=== PATIENT | female | born 1945 | race Caucasian/White ===

== ENCOUNTER 2022-01-14 23:44 | Inpatient (IN) ==
[2022-01-14] MEDS ORDERED: NS 0.9% 1000 ml BAG 1,000 ML IV ONE (23:58)
[2022-01-14] MEDS ORDERED: Diltiazem IV push/loading dose 5 MG/ML 5 ML vial (25 mg) IV PUSH ONE (23:58)
[2022-01-15 00:37] LABS: ABS Basophils 0.1 10^3/ul (0-0.2); ABS Eosinophils 0.7 10^3/ul (0-0.6); ABS Lymphocytes 1.5 10^3/ul (1.0-4.8); ABS Neutrophils 7.1 10^3/ul (1.5-7.7); Eosinophil % 6.8 %; Hematocrit 35 % (35-47); Hemoglobin 11.7 g/dL (12.0-16.0); Lymphocyte % 14.8 %; Mean Corpuscular HGB Conc 33 g/dL (31-36); Mean Corpuscular Hemoglobin 31 pg (27-31); Mean Corpuscular Volume 94 fL (80-97); Mean Platelet Volume 7.5 fL (7.4-10.4); Platelet Count 178 10^3/uL (150-450); Red Blood Count 3.76 10^6 /uL (3.70-4.87); Red Cell Distribution Width 19 % (10-15); White Blood Count 10.3 10^3/uL (3.5-10.8)
[2022-01-15 01:09] LABS: Activated Partial Thrombo Time 34.8 seconds (26.0-38.0); INR 1.04 (0.86-1.15)
[2022-01-15 01:16] LABS: Albumin 3.7 g/dL (3.2-5.2); Albumin/Globulin Ratio 1.4 (1-3); Calcium 8.3 mg/dL (8.6-10.3); Globulin 2.6 g/dL (2-4); Magnesium 1.8 mg/dL (1.9-2.7); Potassium 3.6 mmol/L (3.5-5.0); Total Bilirubin 0.2 mg/dL (0.2-1.0); Total Protein 6.3 g/dL (6.4-8.9); eGFR CKD-EPI 50.5 (>60)
[2022-01-15 01:21] LABS: CKMB ng/mL 1.4 ng/mL (0.6-6.3)
[2022-01-15 01:31] LABS: TSH Ultra Thyroid Stim Horm 5.59 mcIU/mL (0.34-5.60)
[2022-01-15 02:09] LABS: High Sensitivity Troponin 1 Hr 46 pg/mL (<15)
[2022-01-15] MEDS ORDERED: Ondansetron 4 mg VIAL 2 MG/ML 2 ml VIAL IV PRN (04:51)
[2022-01-15] MEDS ORDERED: Magnesium Sulfate 2 gm BAG 2 GM/50 ML BAG IVPB ONE (07:17)
[2022-01-15] MEDS ORDERED: Nitroglycerin 0.3 mg TAB SL PRN (07:27)
[2022-01-15] MEDS ORDERED: Regadenoson 0.4 MG/5 ML SYRINGE ONE (07:32)
[2022-01-15] MEDS ORDERED: Aminophylline 25 MG/ML VIAL ONE (07:32)
[2022-01-15] MEDS ORDERED: Ondansetron 4 mg VIAL 2 MG/ML 2 ml VIAL ONE (07:54)
[2022-01-15] MEDS: CMC:Simvastatin 20 mg TAB (NF) PO SCH (10:15)
[2022-01-15 11:50] LABS: High Sensitivity Troponin 1 Hr 51 pg/mL (<15)
[2022-01-16 06:52] LABS: ABS Eosinophils 0.7 10^3/ul (0-0.6); ABS Lymphocytes 1.6 10^3/ul (1.0-4.8); ABS Monocytes 0.8 10^3/ul (0-0.8); ABS Neutrophils 5.2 10^3/ul (1.5-7.7); Eosinophil % 8.1 %; Hematocrit 34 % (35-47); Hemoglobin 11.5 g/dL (12.0-16.0); Lymphocyte % 19.2 %; Mean Corpuscular HGB Conc 33 g/dL (31-36); Mean Corpuscular Hemoglobin 31 pg (27-31); Mean Corpuscular Volume 94 fL (80-97); Mean Platelet Volume 7.9 fL (7.4-10.4); Platelet Count 165 10^3/uL (150-450); Red Blood Count 3.65 10^6 /uL (3.70-4.87); Red Cell Distribution Width 19 % (10-15); White Blood Count 8.4 10^3/uL (3.5-10.8)
[2022-01-16 06:53] LABS: Calcium 8.1 mg/dL (8.6-10.3); Potassium 4.1 mmol/L (3.5-5.0)
[2022-01-16] MEDS: CMC:Simvastatin 20 mg TAB (NF) PO SCH (07:56)
[2022-01-16] MEDS ORDERED: Metoprolol Tartrate 5 mg VIAL 5 ml VIAL (1 mg/ml) IV ONE ×2 (08:48→09:14)
[2022-01-16] MEDS ORDERED: Metoprolol Tartrate 5 mg VIAL 5 ml VIAL (1 mg/ml) ONE ×2 (08:52→09:22)
[2022-01-16] MEDS ORDERED: Diltiazem IV push/loading dose 5 MG/ML 5 ML vial (25 mg) IV SLOW PU ONE ×2 (09:43)
[2022-01-16 09:55] LABS: Magnesium 2.2 mg/dL (1.9-2.7)
[2022-01-16 10:42] LABS: High Sensitivity Troponin 1 Hr 46 pg/mL (<15)
[2022-01-17 07:05] LABS: Hematocrit 35 % (35-47); Hemoglobin 11.6 g/dL (12.0-16.0); Mean Corpuscular HGB Conc 34 g/dL (31-36); Mean Corpuscular Hemoglobin 32 pg (27-31); Mean Corpuscular Volume 95 fL (80-97); Mean Platelet Volume 7.9 fL (7.4-10.4); Platelet Count 181 10^3/uL (150-450); Red Blood Count 3.64 10^6 /uL (3.70-4.87); Red Cell Distribution Width 18 % (10-15); White Blood Count 8.8 10^3/uL (3.5-10.8)
[2022-01-17] MEDS: Cholecalciferol (VIT D3) 1,000 unit TAB PO SCH (07:18)
[2022-01-17 07:19] LABS: Calcium 8.5 mg/dL (8.6-10.3); Potassium 4.2 mmol/L (3.5-5.0)
[2022-01-17] MEDS: CMC:Simvastatin 20 mg TAB (NF) PO SCH (07:19)
[2022-01-17] MEDS: Calcium/Vitamin D TAB 250/125 TAB PO SCH (07:20)
[2022-01-17] MEDS ORDERED: NS 0.9% 500 ml BAG 500 ML IV ONE (09:40)
[2022-01-17 12:18] LABS: Urine Appearance Clear; Urine Bilirubin Negative (Negative); Urine Blood Negative (Negative); Urine Color Straw; Urine Glucose Negative (Negative); Urine Ketones Negative (Negative); Urine Nitrite Negative (Negative); Urine Protein Negative (Negative); Urine Specific Gravity 1.006 (1.002-1.030); Urine Urobilinogen Negative (Negative)
[2022-01-18 06:54] LABS: Calcium 8.8 mg/dL (8.6-10.3); Potassium 4.4 mmol/L (3.5-5.0)
[2022-01-18] MEDS: Cholecalciferol (VIT D3) 1,000 unit TAB PO SCH (10:43)
[2022-01-18] MEDS: Calcium/Vitamin D TAB 250/125 TAB PO SCH (10:46)
[2022-01-18] MEDS: CMC:Simvastatin 20 mg TAB (NF) PO SCH (10:46)
[2022-01-18] MEDS ORDERED: Al Hydrox/Mg Hydrox/Simet LIQ 30 ML UDC PO ONE (12:27)
[2022-01-18] MEDS ORDERED: Al Hydrox/Mg Hydrox/Simet LIQ 30 ML UDC PO PRN (14:01)
[2022-01-19 06:26] LABS: Calcium 9.1 mg/dL (8.6-10.3); Magnesium 1.8 mg/dL (1.9-2.7); Potassium 4.3 mmol/L (3.5-5.0); eGFR CKD-EPI 42.8 (>60)
[2022-01-19] MEDS: Calcium/Vitamin D TAB 250/125 TAB PO SCH (07:33)
[2022-01-19] MEDS: Cholecalciferol (VIT D3) 1,000 unit TAB PO SCH (07:33)
[2022-01-19] MEDS: CMC:Simvastatin 20 mg TAB (NF) PO SCH (07:34)
[2022-01-19 12:13] VITALS: BP 142/61
== END 2022-01-19 13:56 | disposition home or self-care (01) | DRG 309 ==
LOC: ED 23:44 → SUATTDRO 01-15 04:45 → EDHOLD 01-15 04:45 → MEDTELE 01-15 15:30
PROVIDERS: ADMIT Internal Medicine; ATTEND Internal Medicine

== ENCOUNTER 2024-06-07 16:58 | Inpatient (IN) ==
[2024-06-07 17:48] LABS: ABS Basophils 0.1 10^3/uL (0.0-0.1); ABS Eosinophils 0.3 10^3/uL (0.0-0.5); ABS Lymphocytes 0.6 10^3/uL (1.0-4.8); ABS Monocytes 0.6 10^3/uL (0.0-0.9); ABS Neutrophils 6.2 10^3/uL (1.5-7.6); ABS Nucleated RBC 0.01 10^3/ul; Eosinophil % 3.7 %; Hematocrit 32.1 % (35-45); Hemoglobin 10.4 g/dL (11.5-14.3); Lymphocyte % 7.3 %; Mean Corpuscular Hemoglobin 30.5 pg (27-33); Mean Corpuscular Hgb Conc 32.5 g/dL (31-36); Mean Corpuscular Volume 93.9 fL (80-97); Mean Platelet Volume 7.6 fL (7.5-11.2); Nucleated Red Blood Cells % 0.1 %/100WBC (0.0-0.8); Platelet Count 179 10^3/uL (150-450); Red Blood Count 3.42 10^6/uL (3.63-4.92); Red Cell Distribution Width 19.2 % (12-17); White Blood Count 7.7 10^3/uL (3.8-11.8)
[2024-06-07 17:59] LABS: INR 1.13 (0.85-1.14)
[2024-06-07] MEDS: Ondansetron 4 mg VIAL 2 MG/ML 2 ml VIAL IV ONE (18:21)
[2024-06-07 18:26] LABS: Albumin 4.1 g/dL (3.2-5.2); Albumin/Globulin Ratio 1.5 (1-3); Calcium 9.5 mg/dL (8.6-10.3); Creatinine, Serum 1.48 mg/dL (0.51-0.95); Globulin 2.8 g/dL (2-4); Potassium 4.4 mmol/L (3.5-5.0); Total Bilirubin 0.4 mg/dL (0.2-1.0); Total Protein 6.9 g/dL (6.4-8.9); eGFR CKD-EPI 36.5 (>60)
[2024-06-07] MEDS: Lactated Ringers 1000 ml BAG IV.FLUID IV ONE (18:30)
[2024-06-07] MEDS: Iodixanol 320 (CONTRAST) 100 ML SDV IV ONE (19:03)
[2024-06-07 19:20] LABS: High Sensitivity Troponin 1 Hr 145 pg/mL (<15)
[2024-06-07 22:27] LABS: High Sensitivity Troponin 3 Hr 158 pg/mL (<15)
[2024-06-08] MEDS: Morphine 2 MG/ML SYRINGE IV PRN (00:04)
[2024-06-08] MEDS: Enoxaparin 30 MG/0.3 ML SYR SUBCUT SCH (00:07)
[2024-06-08] MEDS ORDERED: Sulfur Hexaflouride MICROSPHR 25 MG VIAL IV PRN ×2 (03:19→11:34)
[2024-06-08 05:10] LABS: ABS Basophils 0.1 10^3/uL (0.0-0.1); ABS Eosinophils 0.4 10^3/uL (0.0-0.5); ABS Lymphocytes 1.2 10^3/uL (1.0-4.8); ABS Monocytes 0.6 10^3/uL (0.0-0.9); ABS Neutrophils 5.1 10^3/uL (1.5-7.6); ABS Nucleated RBC 0.01 10^3/ul; Eosinophil % 5.4 %; Hematocrit 29.3 % (35-45); Hemoglobin 9.3 g/dL (11.5-14.3); Lymphocyte % 16.5 %; Mean Corpuscular Hemoglobin 30.1 pg (27-33); Mean Corpuscular Hgb Conc 31.7 g/dL (31-36); Mean Corpuscular Volume 94.9 fL (80-97); Mean Platelet Volume 7.7 fL (7.5-11.2); Nucleated Red Blood Cells % 0.2 %/100WBC (0.0-0.8); Platelet Count 153 10^3/uL (150-450); Red Blood Count 3.09 10^6/uL (3.63-4.92); Red Cell Distribution Width 19.1 % (12-17); White Blood Count 7.4 10^3/uL (3.8-11.8)
[2024-06-08 05:26] LABS: Albumin 3.8 g/dL (3.2-5.2); Albumin/Globulin Ratio 1.4 (1-3); Creatinine, Serum 1.4 mg/dL (0.51-0.95); Globulin 2.7 g/dL (2-4); HDL Cholesterol 34.3 mg/dL; Magnesium 1.7 mg/dL (1.9-2.7); Potassium 4.4 mmol/L (3.5-5.0); Total Bilirubin 0.3 mg/dL (0.2-1.0); Total Protein 6.5 g/dL (6.4-8.9)
[2024-06-08] MEDS ORDERED: Midazolam 5 mg/5 ml VIAL 1 mg/ml 5 ml VIAL (5 mg) ONE ×3 (09:33→13:16)
[2024-06-08] MEDS ORDERED: fentaNYL 250 mcg/5 ml 50 MCG/ML 5 ml VIAL (250 MCG) ONE ×2 (09:33→13:07)
[2024-06-08] MEDS: Cholecalciferol (VIT D3) 1,000 unit TAB PO SCH (10:06)
[2024-06-08] MEDS: Nitro 2% OINT (Nitroglycerin) 1 INCH/PAK TOPICAL ONE (11:10)
[2024-06-08] MEDS: Heparin DRIP 25,000 UNITS BAG 25,000 UNITS/250 ML BAG IV SCH (11:29)
[2024-06-08] MEDS: Heparin 5000 UNITS/ML 1 mL VIAL IV SCH (11:32)
[2024-06-08] MEDS: Ondansetron 4 mg VIAL 2 MG/ML 2 ml VIAL IV PRN (12:39)
[2024-06-08] MEDS: Magnesium Sulfate 2 gm BAG 2 GM/50 ML BAG IVPB ONE (12:41)
[2024-06-08] MEDS: NS 0.9% 1000 ml BAG 1,000 ML IV SCH (12:43)
[2024-06-08] MEDS ORDERED: VERAPAMIL 2.5 MG/ML 2 ML VIAL ** 5 mg/2 ml ONE (13:16)
[2024-06-08] MEDS ORDERED: fentaNYL 100 mcg/2 ml 50 MCG/ML VIAL ONE (13:16)
[2024-06-08] MEDS ORDERED: Iohexol 350 (CONTRAST) 100 ML PAK IV ONE (13:17)
[2024-06-08] MEDS ORDERED: nitroGLYCERIN DRIP 25,000 MCG/250 ML BTL ONE (13:17)
[2024-06-08] MEDS ORDERED: Heparin 2 UNITS/ML 1000 mls 2,000 ML IV ONE (13:17)
[2024-06-08] MEDS ORDERED: Lidocaine 1% MPF 5 ML VIAL ONE (13:17)
[2024-06-08] MEDS ORDERED: Heparin 1,000 UNIT/ML 10 ml (10,000 UNITS) CATHLAB/DIALYSIS ONE (13:17)
[2024-06-08] MEDS ORDERED: Iohexol 350 (CONTRAST) 200 ML MDV IV ONE (13:18)
[2024-06-08 13:28] LABS: High Sensitivity Troponin 1 Hr 146 pg/mL (<15)
[2024-06-08] MEDS ORDERED: Prochlorperazine 5 mg/ml 2 ml VIAL (10 mg) ONE (13:28)
[2024-06-08] MEDS ORDERED: Atropine 0.1 MG/ML 10 ml SYR (1 mg) ONE (14:02)
[2024-06-08] MEDS: fentaNYL 100 mcg/2 ml 50 MCG/ML VIAL IV SLOW PU ONE (14:38)
[2024-06-08] MEDS: Midazolam 10 mg/10 ml VIAL 1 mg/ml 10 ml VIAL (10 mg) IV SLOW PU ONE (14:40)
[2024-06-08] MEDS: Magnesium Sulfate IV 1GM/100ML 1 GM/100 ML BAG IV ONE (14:58)
[2024-06-08] MEDS: Furosemide 20 mg/2 ml IV VIAL IV SLOW PU ONE (18:10)
[2024-06-08] MEDS: CMCS: Simvastatin 20 mg TAB (NF) PO SCH (20:54)
[2024-06-09 06:56] LABS: Hematocrit 33.6 % (35-45); Hemoglobin 10.5 g/dL (11.5-14.3); Mean Corpuscular Hemoglobin 30.2 pg (27-33); Mean Corpuscular Hgb Conc 31.3 g/dL (31-36); Mean Corpuscular Volume 96.5 fL (80-97); Mean Platelet Volume 8.1 fL (7.5-11.2); Platelet Count 125 10^3/uL (150-450); Red Blood Count 3.48 10^6/uL (3.63-4.92); Red Cell Distribution Width 19.5 % (12-17); White Blood Count 7.3 10^3/uL (3.8-11.8)
[2024-06-09 07:28] LABS: ABS Eosinophils 0.3 10^3/uL (0.0-0.5); ABS Lymphocytes 1.2 10^3/uL (1.0-4.8); ABS Monocytes 0.9 10^3/uL (0.0-0.9); ABS Neutrophils 4.8 10^3/uL (1.5-7.6); ABS Nucleated RBC 0.02 10^3/ul; Anisocytosis 1+; Eosinophil % 4.8 %; Nucleated Red Blood Cells % 0.2 %/100WBC (0.0-0.8)
[2024-06-09 07:32] LABS: Albumin 3.9 g/dL (3.2-5.2); Albumin/Globulin Ratio 1.5 (1-3); Calcium 8.6 mg/dL (8.6-10.3); Creatinine, Serum 1.58 mg/dL (0.51-0.95); Globulin 2.6 g/dL (2-4); Magnesium 2.8 mg/dL (1.9-2.7); Potassium 5.1 mmol/L (3.5-5.0); Total Bilirubin 0.3 mg/dL (0.2-1.0); Total Protein 6.5 g/dL (6.4-8.9); eGFR CKD-EPI 33.7 (>60)
[2024-06-09 09:39] VITALS: BP 134/65
[2024-06-09] MEDS: Enoxaparin 30 MG/0.3 ML SYR SUBCUT SCH (11:39)
[2024-06-09] MEDS ORDERED: Latanoprost 0.005% 2.5 ml BTL BOTH EYES SCH (21:00)
== END 2024-06-09 13:23 | disposition home or self-care (01) | DRG 286 ==
LOC: ED 16:58 → EDHOLD 22:36 → SUATTDRO 22:36 → MEDTELE 06-08 12:37 → AA 06-08 12:38 → MEDTELE 06-08 13:08
PROVIDERS: ADMIT Student in an Organized Health Care Education/Training Program; ATTEND Internal Medicine

== ENCOUNTER 2024-06-10 14:17 | Inpatient (IN) ==
[2024-06-10 15:09] LABS: Hematocrit 30.4 % (35-45); Hemoglobin 9.8 g/dL (11.5-14.3); Mean Corpuscular Hemoglobin 29.9 pg (27-33); Mean Corpuscular Hgb Conc 32.1 g/dL (31-36); Mean Corpuscular Volume 92.9 fL (80-97); Mean Platelet Volume 7.7 fL (7.5-11.2); Platelet Count 186 10^3/uL (150-450); Red Blood Count 3.27 10^6/uL (3.63-4.92); White Blood Count 7.8 10^3/uL (3.8-11.8)
[2024-06-10] MEDS: Ondansetron 4 mg VIAL 2 MG/ML 2 ml VIAL IV ONE ×3 (15:12→18:03)
[2024-06-10 15:59] LABS: Albumin 4.1 g/dL (3.2-5.2); Albumin/Globulin Ratio 1.6 (1-3); CRP High Sensitivity 12.4 mg/L (<2.00); Creatinine, Serum 1.75 mg/dL (0.51-0.95); Globulin 2.6 g/dL (2-4); Potassium 5.1 mmol/L (3.5-5.0); Total Bilirubin 0.4 mg/dL (0.2-1.0); Total Protein 6.7 g/dL (6.4-8.9); eGFR CKD-EPI 29.8 (>60)
[2024-06-10] MEDS ORDERED: Atropine 0.1 MG/ML 10 ml SYR (1 mg) ONE (17:47)
[2024-06-10] MEDS: Atropine 1 MG/ML INJ 1 ML VIAL IV PUSH ONE (17:48)
[2024-06-10] MEDS ORDERED: Ondansetron 4 mg VIAL 2 MG/ML 2 ml VIAL ONE ×2 (17:51→18:02)
[2024-06-10] MEDS: DOPamine 800 MG/250 ML IVPREMX 800 MG/250 ML ML CENTR SCH ×2 (17:55→22:47)
[2024-06-10] MEDS: Amoxicillin/Clavul 875/125 TAB (Augmentin 875 tab) PO ONE (18:53)
[2024-06-10 20:49] LABS: Magnesium 2.7 mg/dL (1.9-2.7)
[2024-06-10 21:29] LABS: Activated Partial Thrombo Time 26.4 seconds (26.0-38.0); INR 1.21 (0.85-1.14)
[2024-06-10 21:52] LABS: Calcium 8.6 mg/dL (8.6-10.3); Creatinine, Serum 1.69 mg/dL (0.51-0.95); Potassium 4.6 mmol/L (3.5-5.0); eGFR CKD-EPI 31.1 (>60)
[2024-06-10] MEDS: Heparin 5000 UNITS/ML 1 mL VIAL SUBCUT SCH (22:07)
[2024-06-10] MEDS: Simvastatin 20 mg TAB (NF) PO SCH (22:07)
[2024-06-10 22:08] LABS: TSH Ultra Thyroid Stim Horm 4.2 mcIU/mL (0.34-5.60)
[2024-06-10 22:20] LABS: Total Bilirubin 0.5 mg/dL (0.2-1.0)
[2024-06-10] MEDS: Ondansetron 4 mg VIAL 2 MG/ML 2 ml VIAL IV PRN (22:21)
[2024-06-10 23:01] LABS: High Sensitivity Troponin 1 Hr 267 pg/mL (<15)
[2024-06-11] MEDS: Iodixanol 320 (CONTRAST) 100 ML SDV IV ONE (00:55)
[2024-06-11 01:59] LABS: High Sensitivity Troponin 3 Hr 305 pg/mL (<15)
[2024-06-11 04:30] LABS: ABS Eosinophils 0.1 10^3/uL (0.0-0.5); ABS Lymphocytes 0.8 10^3/uL (1.0-4.8); ABS Monocytes 1.4 10^3/uL (0.0-0.9); ABS Neutrophils 12.6 10^3/uL (1.5-7.6); ABS Nucleated RBC 0.01 10^3/ul; Eosinophil % 0.6 %; Hematocrit 27.7 % (35-45); Hemoglobin 8.8 g/dL (11.5-14.3); Lymphocyte % 5.4 %; Mean Corpuscular Hemoglobin 29.7 pg (27-33); Mean Corpuscular Hgb Conc 31.9 g/dL (31-36); Mean Platelet Volume 7.3 fL (7.5-11.2); Nucleated Red Blood Cells % 0.1 %/100WBC (0.0-0.8); Platelet Count 194 10^3/uL (150-450); Red Blood Count 2.98 10^6/uL (3.63-4.92); Red Cell Distribution Width 19.1 % (12-17); White Blood Count 14.9 10^3/uL (3.8-11.8)
[2024-06-11 05:04] LABS: Calcium 8.2 mg/dL (8.6-10.3); Creatinine, Serum 1.59 mg/dL (0.51-0.95); Magnesium 2.1 mg/dL (1.9-2.7); Potassium 4.6 mmol/L (3.5-5.0); eGFR CKD-EPI 33.5 (>60)
[2024-06-11 06:41] LABS: Urine Appearance Turbid; Urine Bilirubin Negative (Negative); Urine Blood 2+ (Negative); Urine Color Light-Yellow; Urine Glucose Negative (Negative); Urine Ketones Negative (Negative); Urine Nitrite Negative (Negative); Urine Protein Trace (Negative); Urine Specific Gravity 1.038 (1.002-1.030); Urine Urobilinogen Negative (Negative); Urine pH 5.5 (5.0-8.0)
[2024-06-11 08:04] LABS: Urine Bacteria Absent /HPF (Absent); Urine Red Blood Cell 2+(6-10/hpf) /HPF (0-Trace); Urine Squamous Epithelial Cell Present /HPF (Absent); Urine White Blood Cell 3+(>20/hpf) /HPF (0-Trace)
[2024-06-11] MEDS: Calcium Citrate 200 mg TAB PO SCH (09:07)
[2024-06-11] MEDS: Cholecalciferol (VIT D3) 1,000 unit TAB PO SCH (09:07)
[2024-06-11 09:46] LABS: High Sensitivity Troponin 3 Hr 267 pg/mL (<15)
[2024-06-11] MEDS: Aspirin EC 81 mg TAB.EC (enteric coated) PO SCH (11:21)
[2024-06-11] MEDS: DOPamine 800 MG/250 ML IVPREMX 800 MG/250 ML ML CENTR SCH (11:22)
[2024-06-11] MEDS ORDERED: Sulfur Hexaflouride MICROSPHR 25 MG VIAL IV PRN (11:48)
[2024-06-11] MEDS: HYDROmorphone 0.5 MG/0.5 ML SYRINGE IV SLOW PU ONE (15:54)
[2024-06-12 04:26] LABS: Hemoglobin 9.3 g/dL (11.5-14.3); Mean Corpuscular Hemoglobin 29.8 pg (27-33); Mean Corpuscular Hgb Conc 32.2 g/dL (31-36); Mean Corpuscular Volume 92.7 fL (80-97); Mean Platelet Volume 7.3 fL (7.5-11.2); Platelet Count 201 10^3/uL (150-450); Red Blood Count 3.13 10^6/uL (3.63-4.92); Red Cell Distribution Width 18.8 % (12-17); White Blood Count 17.4 10^3/uL (3.8-11.8)
[2024-06-12 04:31] LABS: ABS Eosinophils 0.4 10^3/uL (0.0-0.5); ABS Lymphocytes 0.7 10^3/uL (1.0-4.8); ABS Monocytes 1.8 10^3/uL (0.0-0.9); ABS Neutrophils 14.4 10^3/uL (1.5-7.6); ABS Nucleated RBC 0.01 10^3/ul; Eosinophil % 2.5 %; Lymphocyte % 3.9 %
[2024-06-12 05:08] LABS: Albumin 3.4 g/dL (3.2-5.2); Albumin/Globulin Ratio 1.3 (1-3); Calcium 8.2 mg/dL (8.6-10.3); Creatinine, Serum 1.3 mg/dL (0.51-0.95); Globulin 2.7 g/dL (2-4); Magnesium 2.1 mg/dL (1.9-2.7); Potassium 4.5 mmol/L (3.5-5.0); Total Bilirubin 0.5 mg/dL (0.2-1.0); Total Protein 6.1 g/dL (6.4-8.9); eGFR CKD-EPI 42.6 (>60)
[2024-06-12] MEDS: fentaNYL 100 mcg/2 ml 50 MCG/ML VIAL IV SLOW PU PRN (09:02)
[2024-06-12] MEDS: HYDROmorphone 0.5 MG/0.5 ML SYRINGE IV ONE (12:38)
[2024-06-12] MEDS: Magnesium Hydroxide LIQ 30 ML UDC PO SCH (12:38)
[2024-06-12] MEDS ORDERED: Saline NASAL DROPS 0.65% BTL BOTH NARES PRN (14:39)
[2024-06-12] MEDS ORDERED: Saline NASAL SPRAY 0.65% BTL BOTH NARES PRN (14:43)
[2024-06-12] MEDS ORDERED: Zosyn per Pharmacy NOTE FOLLOW UP SCH (18:00)
[2024-06-12] MEDS: Piperacillin/Tazobac 3.375 BAG 3.375 GM/100 ML BAG IV ONE (18:42)
[2024-06-12] MEDS: ZOSYN 3.375 GM Q8H per EXTENDED INFUSION IV SCH (22:27)
[2024-06-12] MEDS: Lactated Ringers 1000 ml BAG 1,000 ML IV SCH (22:28)
[2024-06-13] MEDS: HYDROmorphone 0.5 MG/0.5 ML SYRINGE IV SLOW PU PRN (01:55)
[2024-06-13 06:59] LABS: Calcium 7.8 mg/dL (8.6-10.3); Creatinine, Serum 1.4 mg/dL (0.51-0.95); Magnesium 2.1 mg/dL (1.9-2.7); Potassium 4.1 mmol/L (3.5-5.0)
[2024-06-13 07:27] LABS: ABS Basophils 0.1 10^3/uL (0.0-0.1); ABS Eosinophils 0.5 10^3/uL (0.0-0.5); ABS Lymphocytes 1.4 10^3/uL (1.0-4.8); ABS Monocytes 1.1 10^3/uL (0.0-0.9); ABS Neutrophils 12.4 10^3/uL (1.5-7.6); ABS Nucleated RBC 0.01 10^3/ul; Anisocytosis 1+; Eosinophil % 3.5 %; Hematocrit 27.6 % (35-45); Hemoglobin 8.8 g/dL (11.5-14.3); Lymphocyte % 9.3 %; Mean Corpuscular Hemoglobin 29.8 pg (27-33); Mean Corpuscular Hgb Conc 31.9 g/dL (31-36); Mean Corpuscular Volume 93.5 fL (80-97); Mean Platelet Volume 7.7 fL (7.5-11.2); Nucleated Red Blood Cells % 0.1 %/100WBC (0.0-0.8); Platelet Count 249 10^3/uL (150-450); Red Blood Count 2.95 10^6/uL (3.63-4.92); Red Cell Distribution Width 18.9 % (12-17); White Blood Count 15.5 10^3/uL (3.8-11.8)
[2024-06-14 05:39] LABS: ABS Basophils 0.1 10^3/uL (0.0-0.1); ABS Eosinophils 0.6 10^3/uL (0.0-0.5); ABS Lymphocytes 1.5 10^3/uL (1.0-4.8); ABS Monocytes 0.9 10^3/uL (0.0-0.9); ABS Neutrophils 8.4 10^3/uL (1.5-7.6); ABS Nucleated RBC 0.01 10^3/ul; Eosinophil % 4.8 %; Hematocrit 26.4 % (35-45); Hemoglobin 8.5 g/dL (11.5-14.3); Lymphocyte % 13.3 %; Mean Corpuscular Hemoglobin 29.8 pg (27-33); Mean Corpuscular Hgb Conc 32.2 g/dL (31-36); Mean Corpuscular Volume 92.5 fL (80-97); Mean Platelet Volume 7.6 fL (7.5-11.2); Nucleated Red Blood Cells % 0.1 %/100WBC (0.0-0.8); Platelet Count 246 10^3/uL (150-450); Red Blood Count 2.86 10^6/uL (3.63-4.92); Red Cell Distribution Width 18.7 % (12-17); White Blood Count 11.4 10^3/uL (3.8-11.8)
[2024-06-14 06:27] LABS: ALT 6 U/L (7-52); AST 18 U/L (13-39); Albumin 3.1 g/dL (3.2-5.2); Albumin/Globulin Ratio 1.1 (1-3); Alkaline Phosphatase 67 U/L (35-149); Anion Gap 6 mmol/L (2-16); Blood Urea Nitrogen 25 mg/dL (6-24); CO2 Carbon Dioxide 25 mmol/L (22-32); Chloride 103 mmol/L (101-111); Globulin 2.7 g/dL (2-4); Glucose 90 mg/dL (70-100); Magnesium 2.1 mg/dL (1.9-2.7); Phosphorus 2.2 mg/dL (2.5-5.0); Potassium 4.6 mmol/L (3.5-5.0); Sodium 134 mmol/L (135-145); Total Bilirubin 0.3 mg/dL (0.2-1.0); Total Protein 5.8 g/dL (6.4-8.9)
[2024-06-14 11:30] LABS: C Reactive Protein 119.66 mg/L (<8.01)
[2024-06-14 12:39] LABS: Erythrocyte Sed Rate 68 mm/Hr (0-29)
[2024-06-14 15:13] LABS: Anaplasma phagocytophilum Negative (Negative); B. miyamotoi PCR, B Negative (Negative); Babesia divergens/MO-1 Negative (Negative); Babesia ducani Negative (Negative); Ehrlichia chaffeensis Negative (Negative); Ehrlichia ewingii/canis Negative (Negative); Ehrlichia muris eauclairensis Negative (Negative)
[2024-06-14 17:13] LABS: % Iron Saturation 7 % (15-55); .Transferrin 211 mg/dL (203-362); Iron < 20 ug/dL (50-212); Total Iron Binding Capacity 295 mcg/dL (250-450); Unsaturated Iron Binding 275 ug/dL
[2024-06-14 17:27] LABS: Ferritin 80.5 ng/mL (11-307)
[2024-06-15 06:29] LABS: Hematocrit 26.3 % (35-45); Hemoglobin 8.4 g/dL (11.5-14.3); Mean Corpuscular Hemoglobin 29.6 pg (27-33); Mean Corpuscular Hgb Conc 31.8 g/dL (31-36); Mean Platelet Volume 7.6 fL (7.5-11.2); Platelet Count 279 10^3/uL (150-450); Red Blood Count 2.83 10^6/uL (3.63-4.92); Red Cell Distribution Width 19.2 % (12-17); White Blood Count 11.8 10^3/uL (3.8-11.8)
[2024-06-15 06:47] LABS: Calcium 8.2 mg/dL (8.6-10.3); Creatinine, Serum 1.61 mg/dL (0.51-0.95); Magnesium 2.2 mg/dL (1.9-2.7); Potassium 4.5 mmol/L (3.5-5.0)
[2024-06-15 07:51] LABS: ABS Basophils 0.1 10^3/uL (0.0-0.1); ABS Eosinophils 0.6 10^3/uL (0.0-0.5); ABS Lymphocytes 1.4 10^3/uL (1.0-4.8); ABS Monocytes 1.2 10^3/uL (0.0-0.9); ABS Neutrophils 8.5 10^3/uL (1.5-7.6); ABS Nucleated RBC 0.01 10^3/ul; Eosinophil % 4.9 %; Nucleated Red Blood Cells % 0.1 %/100WBC (0.0-0.8)
[2024-06-15] MEDS ORDERED: Senna TAB 8.6 mg TAB PO PRN (15:49)
[2024-06-16] MEDS ORDERED: Sodium Bicarbonate 8.4% SYR 50 ml SYRINGE ONE (01:04)
[2024-06-16] MEDS ORDERED: Propofol 10 MG/ML 20 ML BTL ONE (01:04)
[2024-06-16] MEDS ORDERED: EPINEPHrine SYR 0.1MG/ML 10 ml SYRINGE IV ONE (01:04)
[2024-06-16 01:50] LABS: Venous Bicarbonate HCO3 11.3 mmol/L (24-28)
[2024-06-16] MEDS ORDERED: Atropine 1 MG/ML INJ 1 ML VIAL IV PUSH PRN (01:57)
[2024-06-16] MEDS ORDERED: Norepinephrine 4 MG/250mL D5W 4,000 MCG/250 ML BAG IV ONE (02:02)
[2024-06-16] MEDS ORDERED: Atropine 0.1 MG/ML 10 ml SYR (1 mg) ONE (02:02)
[2024-06-16] MEDS: Norepinephrine 4 MG/250mL NS 4,000 MCG/250 ML BAG IV SCH (02:08)
[2024-06-16 02:18] LABS: PCO2 Arterial 38 mmHg (35-45); PO2 Arterial 75 mmHg (80-100)
[2024-06-16 02:27] LABS: Albumin 2.9 g/dL (3.2-5.2); Albumin/Globulin Ratio 1.2 (1-3); Creatinine, Serum 2.21 mg/dL (0.51-0.95); Globulin 2.4 g/dL (2-4); Potassium 5.5 mmol/L (3.5-5.0); Total Bilirubin 0.4 mg/dL (0.2-1.0); Total Protein 5.3 g/dL (6.4-8.9); eGFR CKD-EPI 22.5 (>60)
[2024-06-16] MEDS ORDERED: Sodium Bicarbonate 8.4% SYR 50 ml SYRINGE IV ONE ×2 (02:28→02:31)
[2024-06-16 02:40] LABS: ABS Basophils 0.1 10^3/uL (0.0-0.1); ABS Eosinophils 0.3 10^3/uL (0.0-0.5); ABS Lymphocytes 4.2 10^3/uL (1.0-4.8); ABS Monocytes 1.7 10^3/uL (0.0-0.9); ABS Neutrophils 10.8 10^3/uL (1.5-7.6); ABS Nucleated RBC 0.24 10^3/ul; Eosinophil % 1.8 %; Hematocrit 26.9 % (35-45); Lymphocyte % 24.7 %; Mean Corpuscular Hemoglobin 29.6 pg (27-33); Mean Corpuscular Hgb Conc 29.8 g/dL (31-36); Mean Corpuscular Volume 99.4 fL (80-97); Mean Platelet Volume 7.8 fL (7.5-11.2); Nucleated Red Blood Cells % 1.4 %/100WBC (0.0-0.8); Platelet Count 230 10^3/uL (150-450); Red Blood Count 2.71 10^6/uL (3.63-4.92); Red Cell Distribution Width 20.2 % (12-17); White Blood Count 17.1 10^3/uL (3.8-11.8)
[2024-06-16] MEDS: Chlorhexidine MOUTHWASH 0.12% 15 ML UDC TOPICAL SCH (03:03)
[2024-06-16] MEDS ORDERED: Chlorhexidine MOUTHWASH 0.12% 15 ML UDC ONE (03:03)
[2024-06-16] MEDS: Dextrose 50% Syringe 50 ml 25 GM/50 ML SYRINGE ONE (03:57)
[2024-06-16] MEDS: Dextrose 50% Syringe 50 ml 25 GM/50 ML SYRINGE IV PUSH PRN (03:57)
[2024-06-16] MEDS: Lactated Ringers 1000 ml BAG 1,000 ML IV ONE (04:00)
[2024-06-16 04:29] LABS: Calcium 7.7 mg/dL (8.6-10.3); Creatinine, Serum 2.24 mg/dL (0.51-0.95); Magnesium 3.6 mg/dL (1.9-2.7); Potassium 4.9 mmol/L (3.5-5.0); eGFR CKD-EPI 22.2 (>60)
[2024-06-16 04:31] LABS: Calcium 7.6 mg/dL (8.6-10.3); Creatinine, Serum 2.25 mg/dL (0.51-0.95); Potassium 4.9 mmol/L (3.5-5.0); eGFR CKD-EPI 22.1 (>60)
[2024-06-16 04:35] LABS: High Sensitivity Troponin 1 Hr 929 pg/mL (<15)
[2024-06-16 05:10] LABS: Resp Rate 18
[2024-06-16 05:13] LABS: PCO2 Arterial 38 mmHg (35-45); PO2 Arterial 73 mmHg (80-100)
[2024-06-16 05:23] LABS: ABS Basophils 0.1 10^3/uL (0.0-0.1); ABS Eosinophils 0.2 10^3/uL (0.0-0.5); ABS Lymphocytes 3.5 10^3/uL (1.0-4.8); ABS Monocytes 0.5 10^3/uL (0.0-0.9); ABS Neutrophils 16.6 10^3/uL (1.5-7.6); ABS Nucleated RBC 0.56 10^3/ul; Eosinophil % 1.2 %; Hematocrit 27.9 % (35-45); Hemoglobin 8.5 g/dL (11.5-14.3); Lymphocyte % 16.6 %; Mean Corpuscular Hemoglobin 29.8 pg (27-33); Mean Corpuscular Hgb Conc 30.5 g/dL (31-36); Mean Corpuscular Volume 97.9 fL (80-97); Mean Platelet Volume 7.3 fL (7.5-11.2); Nucleated Red Blood Cells % 2.7 %/100WBC (0.0-0.8); Platelet Count 231 10^3/uL (150-450); Red Blood Count 2.85 10^6/uL (3.63-4.92); Red Cell Distribution Width 19.8 % (12-17)
[2024-06-16 05:24] LABS: Anisocytosis 1+; Hypochromasia 2+
[2024-06-16] MEDS ORDERED: Sulfur Hexaflouride MICROSPHR 25 MG VIAL IV PRN (08:36)
[2024-06-16] MEDS ORDERED: Norepinephrine 4 MG/250mL NS 4,000 MCG/250 ML BAG IV SCH (09:00)
[2024-06-16 09:26] VITALS: BP 135/63
[2024-06-16] MEDS: Famotidine IV 10 MG/ML 2 ml VIAL (20 mg) IV SLOW PU SCH (09:49)
[2024-06-16] MEDS: Norepinephrine 4 MG/250mL D5W 4,000 MCG/250 ML BAG IV ONE (10:17)
[2024-06-16] MEDS: LORazepam 2 mg VIAL 1 ml ONE (11:14)
[2024-06-16] MEDS: Norepinephrine 4 MG/250mL D5W 4,000 MCG/250 ML BAG IV SCH (11:26)
[2024-06-16] MEDS ORDERED: LORazepam 2 mg VIAL 1 ml IV PUSH PRN (11:33)
[2024-06-16] MEDS ORDERED: Morphine 2 MG/ML SYRINGE IV PRN (11:33)
[2024-06-16] MEDS ORDERED: Ondansetron 4 mg VIAL 2 MG/ML 2 ml VIAL IV PRN (11:33)
[2024-06-16] MEDS ORDERED: Scopolamine 1 mg/72hr PATCH TRANSDERM SCH (12:00)
[2024-06-16 14:48] LABS: Cytomegalovirus IgG Antibody Negative (Negative)
[2024-06-16 15:56] LABS: Immunoglobulin G 1040 mg/dL (767 - 1590); Immunoglobulin M 186 mg/dL (37 - 286)
[2024-06-16 17:25] LABS: Complement C3 123 mg/dL (75 - 175)
[2024-06-17 19:50] LABS: Phospholipid Ab IgG < 9.4 GPL; Phospholipid Ab IgM, S < 9.4 MPL
[2024-06-18 20:07] LABS: ANA Pattern: Centromere
== END 2024-06-16 12:02 | disposition expired | DRG 239 ==
LOC: ED 14:17 → SUATTDRO 20:24 → EDHOLD 20:24 → ICU 22:47 → MEDTELE 06-13 21:14 → ICU 06-16 03:06
PROVIDERS: ADMIT Internal Medicine Critical Care Medicine; ATTEND Internal Medicine